=== PATIENT | female | born 1960 | race Caucasian/White ===

== ENCOUNTER 2023-09-30 04:14 | Day surgery (SDC) | payer OTHER ==
[2023-09-28 10:55] VITALS: BMI 32.0
[2023-09-30] MEDS ORDERED: MIDAZOLAM HCL 2 MG/2 ML SINGLE DOSE VIAL ONE (09:08)
[2023-09-30] MEDS ORDERED: PROPOFOL 20 ML ONE (09:09)
[2023-09-30] MEDS: ceFAZolin SODIUM 1 GM VIAL IVPB ONE (09:37)
[2023-09-30] MEDS ORDERED: DEXAMETHASONE SOD PHOSPHATE 4 MG/1 ML VIAL ONE (10:32)
[2023-09-30] MEDS ORDERED: ONDANSETRON 4 MG/2 ML VIAL ONE (10:32)
[2023-09-30] MEDS ORDERED: ONDANSETRON 4 MG/2 ML VIAL IVPUSH PRN (10:36)
[2023-09-30] MEDS ORDERED: LACTATED RINGERS SOLUTION 1,000 ML IV SCH (10:45)
[2023-09-30] MEDS: ACETAMINOPHEN 1000 MG/100 ML BAG IVPB ONE (11:00)
[2023-09-30] MEDS: KETOROLAC TROMETHAMINE 30 MG/1 ML VIAL IVPUSH ONE (11:01)
[2023-09-30 15:12] VITALS: BP 138/81; PULSE 82; RESP 18; TEMP 97.7
== END 2023-09-30 13:40 | disposition home or self-care (01) ==
LOC: JASU-SURG 04:14
PROVIDERS: ATTEND Urology
PROC: 0UPH7JZ Removal of Synthetic Substitute from Vagina and Cul-de-sac, Via Natural or Artificial Opening (ICD-10-PCS; principal; 2023-09-30 08:30)
PROC: 0TVC8ZZ Restriction of Bladder Neck, Via Natural or Artificial Opening Endoscopic (ICD-10-PCS; 2023-09-30 08:30)
DX: T83.89XA Other specified complication of genitourinary prosthetic devices, implants and grafts, initial encounter (principal); N36.42 Intrinsic sphincter deficiency (ISD); N39.3 Stress incontinence (female) (male); R35.0 Frequency of micturition
CPT/HCPCS: 51715; 57295; L8606; 88304-TC; 94760; J0131